=== PATIENT | female | born 1960 | race American Indian/Alaskan Native ===

== ENCOUNTER 2021-12-08 14:48 | Inpatient (IN) | payer MEDICAID ==
--- NOTE | 2021-12-09 08:43 | History and Physical Report ---
GP History & Physical - History of Present Illness Date of admission: 12/08/21 Date of Examination: 12/09/21 Reason for Admission: Danger to self, Danger to others Chief Complaint: suicidal ideation/hallucinations History of Present Illness: The patient is a 61 year old female with schizophrenia and depression who is admitted from [facility] for continued stabilization. The patient presented to the ED with suicidal ideation and auditory hallucinations; per note, the patient states that she was playing [place] [employer] with a cable suzanne and she lost and now she is having suicidal thoughts, and also states she is on TikTok with the the Cable suzanne. Notes states that the patient was seeing insects and snakes. The patient was seen today. She is calm, pleasant but hyperverbal. The patient is alert and oriented x4. She states that she went to the police department and was transported to [facility]. She states she is followed by a psychiatrist and was placed on Zyprexa 5mg po QHS however, she states she does not take her meds as prescribed. The patient reports alcohol use " drinks beer every morning," last used 3 days ago. She endorses depression, rates as 6/10. The patient denies any current suicidal/homicidal ideation and denies hallucinations. 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 Employment Status: Unemployed Access to guns/weapons: Denies Education: 11th grade History of Abuse: Denies Legal History: Denies REVIEW OF SYSTEMS Constitutional: Negative for weight loss ENT: Negative for stridor Respiratory: Negative for cough or hemoptysis All other systems reviewed and are negative MENTAL STATUS General Appearance and Behavior: age appropriate, good eye contact, cooperative, calm, pleasant Cooperation: Cooperative Psychomotor Behavior: within normal limits Mood: calm Affect and affective range: Congruent with stated mood Thought Process: Circumstantial/flight of ideas Thought Content: reality oriented Speech: Hyperverbal Suicidal Ideation: Denies Homicidal Ideation: Denies HI Hallucinations:Denies Delusions: None elicited Impulse Control: Fair Insight and Judgment: Good Memory: Good Attention: Attentive Orientation: alert and oriented Diagnosis: Schizophrenia Treatment Plan Patient will be admitted for inpatient psychiatric evaluation, medication adjustment and close monitoring The patient's behavior, mood, sleep and appetite will be closely monitored. Patient will be enrolled in individual and group therapeutic sessions and encouraged to attend. Patient will be provided with a safe and structured environment. Patient's physical health needs will be addressed by the Hospitalist. Hospitalist Consulted Labs including CBC, CMP, Lipid profile and Hemoglobin A1C ordered Social Assessment will be completed and the Waistline [employer] will work with patient and family to ensure a suitable and safe disposition Medication adjustment will be made as clinically indicated Usual Wellness Hoahaoism/Preservation: -Continue home meds Start Zyprexa 5mg po BID Start Depakote 125mg po BID The patient agreed on the treatment plan, understood the risk, benefit, alternative treatment, potential consequence of no treatment, and gave informed consent. Legal Status: voluntary Reaction to Hospitalization: Accepting Medications and Allergies Medications and Allergies Allergies Allergy/AdvReac Type Severity Reaction Status Date / Time No Known Allergies Allergy Unverified 12/08/21 18:22 Home Medications Medication Instructions Recorded Confirmed Last Taken Type Albuterol Mdi (or & Nicu Only) 1 puff IH Q4HR PRN 12/09/21 12/09/21 Unknown History [ProAir HFA Inhaler] AtorvaSTATin [Lipitor] 20 mg PO HS 12/09/21 12/09/21 Unknown History Levothyroxine Sodium 137 mcg PO QAM 12/09/21 12/09/21 Unknown History OLANZapine [Olanzapine] 5 mg PO HS 12/09/21 12/09/21 Unknown History Tiotropium [place] [Spiriva] 18 mcg INHALATION DAILY 12/09/21 12/09/21 Unknown History Tizanidine HCl 4 mg PO Q8HR PRN 12/09/21 12/09/21 Unknown History amLODIPine 10 mg PO DAILY 12/09/21 12/09/21 Unknown History lisinopriL [Lisinopril] 10 mg PO DAILY 12/09/21 12/09/21 Unknown History Active Meds: Active Medications Albuterol (Albuterol 8.5 Gm Mdi Inhalation) 1 puff IH Q4HR PRN PRN Reason: Dyspnea Amlodipine Besylate (Amlodipine 10 Mg Tab) 10 mg PO DAILY [facility] Atorvastatin Calcium (Atorvastatin 20 Mg Tab) 20 mg PO HS [facility] Lisinopril (Lisinopril 10 Mg Tab) 10 mg PO DAILY [facility] Miscellaneous Medication (Levothyroxine Sodium [Levothyroxine Sodium]) 137 mcg PO QAM [facility] Olanzapine (Olanzapine 5 Mg Tab) 5 mg PO BID [facility] Tiotropium [place] (Tiotropium 18 Mcg Cap Inhalation) puff IH DAILY [facility] Tizanidine HCl (Tizanidine Tab 4 Mg Tab) 4 mg PO Q8HR PRN PRN Reason: Muscle Spasm Results - Results Labs/Vitals: Last Vital Signs Temp 97.2 F L 12/09/21 07:17 Pulse 61 12/09/21 07:17 Resp 17 12/09/21 07:17 BP 96/61 12/09/21 07:17 Pulse Ox 93 12/09/21 07:17 Physical Examination - Constitutional Vitals: Vital Signs Temp Pulse Resp BP Pulse Ox 97.2 F L 61 17 96/61 93 12/09/21 07:17 12/09/21 07:17 12/09/21 07:17 12/09/21 07:17 12/09/21 07:17 Temperature -Last 24 Hours Temperature 97.2 F Temperature 98.2 F Mental Status Exam - Vital signs Last Vital Signs Temp 97.2 F L 12/09/21 07:17 Pulse 61 12/09/21 07:17 Resp 12/09/21 07:17 BP 96/61 12/09/21 07:17 Pulse Ox 93 12/09/21 07:17 Physician Certification - Certification Statement Physician Certification Statement: This is an acknowledgement statement that FERNANDO CHANEL is a 61 year old F who requires inpatient psychiatric admission for treatment which could reasonably be expected to improve the patient's condition for Estimated period of time patient will need to remain in the hospital: [ ] Plan for post-hospital care: [ ]
--- NOTE | 2021-12-09 09:24 | Consultation ---
History of Present Illness - History of Present Illness 61-year-old female with past medical history of hyperlipidemia, hypertension, asthma, hypothyroidism presenting to our facility for suicidal ideation and auditory hallucinations. Internal medicine service consulted for medical management. On my encounter the patient did appear to have strange disorganized thought process. She did not complain of any acute symptoms of headache, nausea, vomiting, chest pain, shortness of breath, abdominal pain. She denied any changes in her bowel habits her her appetite. Remainder of ROS negative except for stated above PMHx: Hyperlipidemia, hypothyroidism, hypertension, asthma, polysubstance abuse PSHx: Denies FHx: Reviewed noncontributory SHx: Tobacco use-denies ETOH Use-admits Recreational Drug Use-admits, THC, cocaine Medications and Allergies Allergies Allergy/AdvReac Type Severity Reaction Status Date / Time No Known Allergies Allergy Unverified 12/08/21 18:22 Home Medications Medication Instructions Recorded Confirmed Last Taken Type Albuterol Mdi (or & Nicu Only) 1 puff IH Q4HR PRN 12/09/21 12/09/21 Unknown History [ProAir HFA Inhaler] AtorvaSTATin [Lipitor] 20 mg PO HS 12/09/21 12/09/21 Unknown History Levothyroxine Sodium 137 mcg PO QAM 12/09/21 12/09/21 Unknown History OLANZapine [Olanzapine] 5 mg PO HS 12/09/21 12/09/21 Unknown History Tiotropium [place] [Spiriva] 18 mcg INHALATION DAILY 12/09/21 12/09/21 Unknown History Tizanidine HCl 4 mg PO Q8HR PRN 12/09/21 12/09/21 Unknown History amLODIPine 10 mg PO DAILY 12/09/21 12/09/21 Unknown History lisinopriL [Lisinopril] 10 mg PO DAILY 12/09/21 12/09/21 Unknown History Active Meds: Active Medications Albuterol (Albuterol 8.5 Gm Mdi Inhalation) 1 puff IH Q4HR PRN PRN Reason: Dyspnea Amlodipine Besylate (Amlodipine 10 Mg Tab) 10 mg PO DAILY [facility] Atorvastatin Calcium (Atorvastatin 20 Mg Tab) 20 mg PO HS [facility] Divalproex Sodium (Divalproex Dr 125 Mg Tab) 125 mg PO BID [facility] Levothyroxine Sodium (Levothyroxine 112 Mcg Tab) 112 mcg PO DAILY@0600 [facility] Levothyroxine Sodium (Levothyroxine 25 Mcg Tab) 25 mcg PO DAILY@0600 [facility] Lisinopril (Lisinopril 10 Mg Tab) 10 mg PO DAILY [facility] Olanzapine (Olanzapine 5 Mg Tab) 5 mg PO BID [facility] Tiotropium [place] (Tiotropium 18 Mcg Cap Inhalation) 1 puff IH DAILY [facility] Tizanidine HCl (Tizanidine Tab 4 Mg Tab) 4 mg PO Q8HR PRN PRN Reason: Muscle Spasm Trazodone HCl (Trazodone 50 Mg Tab) 50 mg PO QHS PRN PRN Reason: Insomnia Review of Systems All systems: negative (For stated in HPI) Exam - Physical Exam Narrative exam: Physical Exam: VITAL SIGNS: Reviewed. GENERAL: The patient appears normally developed, Vital signs as documented. Appears older than reported age HEAD: No signs of head trauma. EYES: Pupils are equal. Extraocular motions intact. EARS: Hearing grossly intact. MOUTH: Oropharynx is normal. NECK: No adenopathy, no JVD. CHEST: Chest with clear breath sounds bilaterally. No wheezes, rales, or rhonchi. CARDIAC: Regular rate and rhythm. S1 and S2, without murmurs, gallops, or rubs. VASCULAR: No Edema. Peripheral pulses normal and equal in all extremities. ABDOMEN: Soft, non tender and non distended. No rebound or guarding, and no masses palpated. Bowel Sounds normal. MUSCULOSKELETAL: Good range of motion of all major joints. Extremities without clubbing, cyanosis or edema. NEUROLOGIC EXAM: Alert and oriented x 4. no focal sensory or strength deficits. PSYCHIATRIC: Disorganized thought process. Tangential thoughts. SKIN: detail exam as documented in skin assessment - Constitutional Vitals: Temp Pulse Resp BP Pulse Ox 97.2 F L 61 17 96/61 93 12/09/21 07:17 12/09/21 07:17 12/09/21 07:17 12/09/21 07:17 12/09/21 07:17 Results - Labs CBC & Chem 7: 12/08/21 12:39 12/08/21 12:39 Assessment and Plan Assessment #Delusional disorder #Depression #Schizophrenia #Hypertension #Asthma #Hypothyroidism #Hyperlipidemia #Preventative health care - preventative health counseling regarding management of life stressors, medication compliance and overall effect of chronic medical conditions on overall health. Encourage patient to follow up closely with with OP providers +30 minutes. #Alcohol abuse #THC use #Cocaine use #Advance care planning Disease education conducted, care plan discussed, diagnoses discussed, prognosis discussed, patient is full code, patient acknowledges understanding and agree with care plan, +30 minutes. Plan -Psychiatric medication management per inpatient psych service -Monitor blood pressure daily, hypotensive on last BP read, hold lisinopril and amlodipine -Follow up labs ordered. -Resume home medications: Atorvastatin, Synthroid Patient currently on room air, agree with inhaler therapy with Spiriva and albuterol IM service will continue to follow while patient remains hospitalized
[2021-12-09] MEDS: DIVALPROEX DR 125 MG TAB PO SCH ×2 (09:46→21:11)
[2021-12-09] MEDS ORDERED: LEVOTHYROXINE SODIUM 137 MCG PO SCH (10:00)
[2021-12-09] MEDS ORDERED: amLODIPine 10 MG TAB PO SCH (10:00)
[2021-12-09] MEDS ORDERED: ALBUTEROL 8.5 GM MDI INHALATION IH PRN (10:00)
[2021-12-09] MEDS ORDERED: LISINOPRIL 10 MG TAB PO SCH (10:00)
[2021-12-09] MEDS ORDERED: tiZANidine TAB 4 MG TAB PO PRN (10:00)
[2021-12-09 12:48] LABS: Hematocrit 46.9 % (30.3-42.9); Hemoglobin 14.9 gm/dl (10.1-14.3); Mean Corpuscular HGB Conc 32 % (30-34); Mean Corpuscular Volume 91 fl (79-97); Platelet Count 211 K/mm3 (140-440); Red Blood Count 5.15 M/mm3 (3.65-5.03)
[2021-12-09 12:50] LABS: Red Cell Distribution Width 20.8 % (13.2-15.2)
[2021-12-09 13:08] LABS: Alanine Aminotransferase 14 units/L (7-56); Albumin 4.4 g/dL (3.9-5); BUN/Creatinine Ratio 18; Blood Urea Nitrogen 16 mg/dL (7-17); Calcium 10.9 mg/dL (8.4-10.2); Chol/HDL Ratio 1.85 %; HDL Cholesterol 98 mg/dL (40-59); Hemolysis Index 1; LDL Cholesterol,Direct 63 mg/dL (50-130)
[2021-12-09 13:33] LABS: Anisocytosis 1+; Eosinophils % (Manual) 0 % (0.0-4.3); Platelet Estimate Consistent w Auto; Total Cells Counted 100
[2021-12-09 13:56] LABS: Hepatitis B Surface Antigen Non-Reactive (Negative); Hepatitis C Virus Antibody Non-Reactive (NonReactive)
[2021-12-09] MEDS: ACETAMINOPHEN 325 MG TAB PO PRN (15:21)
[2021-12-09] MEDS: TIOTROPIUM 18 MCG CAP INHALATION IH SCH (16:30)
[2021-12-09] MEDS ORDERED: traZODone 50 MG TAB PO PRN (22:00)
[2021-12-10] MEDS: LEVOTHYROXINE 25 MCG TAB PO SCH (05:49)
[2021-12-10] MEDS: LEVOTHYROXINE 112 MCG TAB PO SCH (05:49)
--- NOTE | 2021-12-10 09:43 | Progress Note ---
Subjective Date of service: 12/10/21 Subjective Comment: 12/10:Seen pt today. Pt continues to complain about low sodium diet. The patient has a cardiac history that prevents her from having a regular diet, the pt has been educated of this. She reports "I'm doing good". Sleep is good. The pt denies any current cravings of crack and alcohol. She denies SI, HI, AVH. REVIEW OF SYSTEMS Constitutional: Negative for weight loss ENT: Negative for stridor Respiratory: Negative for cough or hemoptysis All other systems reviewed and are negative MENTAL STATUS General Appearance and Behavior: age appropriate, good eye contact, cooperative, calm, pleasant Cooperation: Cooperative Psychomotor Behavior: within normal limits Mood: good Affect and affective range: Congruent with stated mood Thought Process: goal directed Thought Content: reality oriented Speech: Normal Suicidal Ideation: Denies Homicidal Ideation: Denies HI Hallucinations:Denies Delusions: None elicited Impulse Control: Fair Insight and Judgment: Good Memory: Good Attention: Attentive Orientation: alert and oriented x4 Diagnosis: Schizophrenia Treatment Plan Patient will be admitted for inpatient psychiatric evaluation, medication adjustment and close monitoring The patient's behavior, mood, sleep and appetite will be closely monitored. Patient will be enrolled in individual and group therapeutic sessions and encouraged to attend. Patient will be provided with a safe and structured environment. Patient's physical health needs will be addressed by the Hospitalist. Hospitalist Consulted Labs including CBC, CMP, Lipid profile and Hemoglobin A1C ordered Social Assessment will be completed and the [employer] will work with patient and family to ensure a suitable and safe disposition Medication adjustment will be made as clinically indicated Usual Wellness Yazdanism/Preservation: -Continue home meds Start Zyprexa 5mg po BID Start Depakote 125mg po BID The patient agreed on the treatment plan, understood the risk, benefit, alternative treatment, potential consequence of no treatment, and gave informed consent. Legal Status: voluntary Reaction to Hospitalization: Accepting Medications and Allergies Medications and Allergies Allergies Allergy/AdvReac Type Severity Reaction Status Date / Time No Known Allergies Allergy Unverified 12/08/21 18:22 Home Medications Medication Instructions Recorded Confirmed Last Taken Type Albuterol Mdi (or & Nicu Only) 1 puff IH Q4HR PRN 12/09/21 12/09/21 Unknown History [ProAir HFA Inhaler] AtorvaSTATin [Lipitor] 20 mg PO HS 12/09/21 12/09/21 Unknown History Levothyroxine Sodium 137 mcg PO QAM 12/09/21 12/09/21 Unknown History OLANZapine [Olanzapine] 5 mg PO HS 12/09/21 12/09/21 Unknown History Tiotropium [place] [Spiriva] 18 mcg INHALATION DAILY 12/09/21 12/09/21 Unknown History Tizanidine HCl 4 mg PO Q8HR PRN 12/09/21 12/09/21 Unknown History amLODIPine 10 mg PO DAILY 12/09/21 12/09/21 Unknown History lisinopriL [Lisinopril] 10 mg PO DAILY 12/09/21 12/09/21 Unknown History Active Meds: Active Medications Acetaminophen (Acetaminophen 325 Mg Tab) 650 mg PO Q6HR PRN PRN Reason: Pain, Mild (1-3) Last Admin: 12/09/21 15:21 Dose: 650 mg Albuterol (Albuterol 8.5 Gm Mdi Inhalation) 1 puff IH Q4HR PRN PRN Reason: Dyspnea Atorvastatin Calcium (Atorvastatin 20 Mg Tab) 20 mg PO [facility] Last Admin: 12/09/21 21:12 Dose: 20 mg Divalproex Sodium (Divalproex Dr 125 Mg Tab) [address] [facility] Last Admin: 12/09/21 21:11 Dose: 125 mg Levothyroxine Sodium (Levothyroxine 112 Mcg Tab) 112 mcg PO DAILY@0600 [facility] Last Admin: 12/10/21 05:49 Dose: 112 mcg Levothyroxine Sodium (Levothyroxine 25 Mcg Tab) 25 mcg PO DAILY@0600 [facility] Last Admin: 12/10/21 05:49 Dose: 25 mcg Olanzapine (Olanzapine 5 Mg Tab) [address] [facility] Last Admin: 12/09/21 21:11 Dose: 5 mg Tiotropium [place] (Tiotropium 18 Mcg Cap Inhalation) [address] [facility] Last Admin: 12/09/21 16:30 Dose: 1 puff Tizanidine HCl (Tizanidine Tab 4 Mg Tab) 4 mg PO Q8HR PRN PRN Reason: Muscle Spasm Trazodone HCl (Trazodone 50 Mg Tab) 50 mg PO QHS PRN PRN Reason: Insomnia Results - Results Labs/Vitals: Laboratory Last Values WBC 5.1 K/mm3 (4.5-11.0) 12/08/21 12:39 RBC 5.15 M/mm3 (3.65-5.03) H 12/08/21 12:39 Hgb 14.9 gm/dl (10.1-14.3) H 12/08/21 12:39 Hct 46.9 % (30.3-42.9) H 12/08/21 12:39 MCV 91 fl (79-97) 12/08/21 12:39 MCH 29 pg (28-32) 12/08/21 12:39 MCHC 32 % (30-34) 12/08/21 12:39 RDW 20.8 % (13.2-15.2) H 12/08/21 12:39 Plt Count 211 K/mm3 (140-440) 12/08/21 12:39 Add Manual Diff Complete 12/08/21 12:39 Total Counted 100 12/08/21 12:39 Seg Neuts % (Manual) 70.0 % (40.0-70.0) 12/08/21 12:39 Band Neutrophils % 0 % 12/08/21 12:39 Lymphocytes % (Manual) 24.0 % (13.4-35.0) 12/08/21 12:39 Reactive Lymphs % (Man) 0 % 12/08/21 12:39 Monocytes % (Manual) 5.0 % (0.0-7.3) 12/08/21 12:39 Eosinophils % (Manual) 0 % (0.0-4.3) 12/08/21 12:39 Basophils % (Manual) 1.0 % (0.0-1.8) 12/08/21 12:39 Metamyelocytes % 0 % 12/08/21 12:39 Myelocytes % 0 % 12/08/21 12:39 Promyelocytes % 0 % 12/08/21 12:39 Blast Cells % 0 % 12/08/21 12:39 Nucleated RBC % Not Reportable 12/08/21 12:39 Seg Neutrophils # Man 3.6 K/mm3 (1.8-7.7) 12/08/21 12:39 Band Neutrophils # 0.0 K/mm3 12/08/21 12:39 Lymphocytes # (Manual) 1.2 K/mm3 (1.2-5.4) 12/08/21 12:39 Abs React Lymphs (Man) 0.0 K/mm3 12/08/21 12:39 Monocytes # (Manual) 0.3 K/mm3 (0.0-0.8) 12/08/21 12:39 Eosinophils # (Manual) 0.0 K/mm3 (0.0-0.4) 12/08/21 12:39 Basophils # (Manual) 0.1 K/mm3 (0.0-0.1) 12/08/21 12:39 Metamyelocytes # 0.0 K/mm3 12/08/21 12:39 Myelocytes # 0.0 K/mm3 12/08/21 12:39 Promyelocytes # 0.0 K/mm3 12/08/21 12:39 Blast Cells # 0.0 K/mm3 12/08/21 12:39 WBC Morphology Not Reportable 12/08/21 12:39 Hypersegmented Neuts Not Reportable 12/08/21 12:39 Hyposegmented Neuts Not Reportable 12/08/21 12:39 Hypogranular Neuts Not Reportable 12/08/21 12:39 Smudge Cells Not Reportable 12/08/21 12:39 Toxic Granulation Not Reportable 12/08/21 12:39 Toxic Vacuolation Not Reportable 12/08/21 12:39 Dohle Bodies Not Reportable 12/08/21 12:39 Pelger-Huet Anomaly Not Reportable 12/08/21 12:39 Maeve Rods Not Reportable 12/08/21 12:39 Platelet Estimate Consistent w auto 12/08/21 12:39 Clumped Platelets Not Reportable 12/08/21 12:39 Plt Clumps, EDTA Not Reportable 12/08/21 12:39 Large Platelets Not Reportable 12/08/21 12:39 Giant Platelets Not Reportable 12/08/21 12:39 Platelet Satelliting Not Reportable 12/08/21 12:39 Plt Morphology Comment Not Reportable 12/08/21 12:39 RBC Morphology Not Reportable 12/08/21 12:39 Dimorphic RBCs Not Reportable 12/08/21 12:39 Polychromasia Not Reportable 12/08/21 12:39 Hypochromasia Not Reportable 12/08/21 12:39 Poikilocytosis Not Reportable 12/08/21 12:39 Anisocytosis 1+ 12/08/21 12:39 Microcytosis Not Reportable 12/08/21 12:39 Macrocytosis Not Reportable 12/08/21 12:39 Spherocytes Not Reportable 12/08/21 12:39 Pappenheimer Bodies Not Reportable 12/08/21 12:39 Sickle Cells Not Reportable 12/08/21 12:39 Target Cells Not Reportable 12/08/21 12:39 Tear Drop Cells Not Reportable 12/08/21 12:39 Ovalocytes Not Reportable 12/08/21 12:39 Helmet Cells Not Reportable 12/08/21 12:39 [place] Bodies Not Reportable 12/08/21 12:39 [place] Rings Not Reportable 12/08/21 12:39 Yulia Cells Not Reportable 12/08/21 12:39 Bite Cells Not Reportable 12/08/21 12:39 Crenated Cell Not Reportable 12/08/21 12:39 Elliptocytes Not Reportable 12/08/21 12:39 Acanthocytes (Spur) Not Reportable 12/08/21 12:39 Rouleaux Not Reportable 12/08/21 12:39 Hemoglobin C Crystals Not Reportable 12/08/21 12:39 Schistocytes Not Reportable 12/08/21 12:39 Malaria parasites Not Reportable 12/08/21 12:39 Reinaldo Bodies Not Reportable 12/08/21 12:39 Hem Pathologist Commnt No 12/08/21 12:39 Sodium 135 mmol/L (137-145) L 12/08/21 12:39 Potassium 3.7 mmol/L (3.6-5.0) 12/08/21 12:39 Chloride 98.2 mmol/L (98-107) 12/08/21 12:39 Carbon Dioxide 27 mmol/L (22-30) 12/08/21 12:39 Anion Gap 14 mmol/L 12/08/21 12:39 BUN 16 mg/dL (7-17) 12/08/21 12:39 Creatinine 0.9 mg/dL (0.6-1.2) 12/08/21 12:39 Estimated GFR > 60 ml/min 12/08/21 12:39 BUN/Creatinine Ratio 18 % 12/08/21 12:39 Glucose 148 mg/dL (65-100) H 12/08/21 12:39 Hemoglobin A1c 6.0 % (4-6) 12/08/21 12:39 Calcium 10.9 mg/dL (8.4-10.2) H 12/08/21 12:39 Total Bilirubin 0.60 mg/dL (0.1-1.2) 12/08/21 12:39 AST 18 units/L (5-40) 12/08/21 12:39 ALT 14 units/L (7-56) 12/08/21 12:39 Alkaline Phosphatase 97 units/L (35-129) 12/08/21 12:39 Total Protein 7.4 g/dL (6.3-8.2) 12/08/21 12:39 Albumin 4.4 g/dL (3.9-5) 12/08/21 12:39 Albumin/Globulin Ratio 1.5 % 12/08/21 12:39 Triglycerides 184 mg/dL (2-149) H 12/08/21 12:39 Cholesterol 182 mg/dL (50-199) 12/08/21 12:39 LDL Cholesterol Direct 63 mg/dL (50-130) 12/08/21 12:39 HDL Cholesterol 98 mg/dL (40-59) H 12/08/21 12:39 Cholesterol/HDL Ratio 1.85 % 12/08/21 12:39 TSH 59.450 mlU/mL (0.270-4.200) H 12/08/21 12:39 Hepatitis A IgM Ab Non-reactive (NonReactive) 12/08/21 12:39 Hep Bs Antigen Non-reactive (Negative) 12/08/21 12:39 Hep B Core IgM Ab Non-reactive (NonReactive) 12/08/21 12:39 Hepatitis C Antibody Non-reactive (NonReactive) 12/08/21 12:39 Last Vital Signs Temp 98.3 F 12/09/21 18:52 Pulse 61 12/10/21 08:01 Resp 18 12/10/21 08:01 BP 106/61 12/10/21 08:01 Pulse Ox 94 12/10/21 08:01
[2021-12-10] MEDS ORDERED: hydrOXYzine PAMOATE 25 MG CAP PO PRN (10:00)
[2021-12-10] MEDS ORDERED: LEVOTHYROXINE 25 MCG TAB PO SCH (10:00)
[2021-12-10] MEDS ORDERED: LEVOTHYROXINE 112 MCG TAB PO SCH (10:00)
[2021-12-10] MEDS: DIVALPROEX DR 125 MG TAB PO SCH ×2 (10:55→21:14)
[2021-12-10] MEDS: ACETAMINOPHEN 325 MG TAB PO PRN (11:19)
--- NOTE | 2021-12-10 14:23 | Progress Note ---
Assessment and Plan Assessment and plan: Assessment #Delusional disorder #Depression #Schizophrenia #Hypertension #Asthma #Hypothyroidism #Hyperlipidemia #Preventative health care - preventative health counseling regarding management of life stressors, medication compliance and overall effect of chronic medical conditions on overall health. Encourage patient to follow up closely with with OP providers +30 minutes. #Alcohol abuse #THC use #Cocaine use #Advance care planning Disease education conducted, care plan discussed, diagnoses discussed, prognosis discussed, patient is full code, patient acknowledges understanding and agree with care plan, +30 minutes. Plan -Psychiatric medication management per inpatient psych service -Monitor blood pressure daily, hypotensive on BP read yesterday, continue to hold lisinopril and amlodipine -Lab work reviewed. TSH significantly elevated c/w non compliance with synthr oid. -Resume home medications: Atorvastatin, Synthroid Patient currently on room air, agree with inhaler therapy with Spiriva and albuterol IM service will continue to follow while patient remains hospitalized History Interval history: NO acute complaints. Hospitalist Physical - Physical exam Narrative exam: Physical Exam: VITAL SIGNS: Reviewed. GENERAL: The patient appears normally developed, Vital signs as documented. Appears older than reported age HEAD: No signs of head trauma. EYES: Pupils are equal. Extraocular motions intact. EARS: Hearing grossly intact. MOUTH: Oropharynx is normal. NECK: No adenopathy, no JVD. CHEST: Chest with clear breath sounds bilaterally. No wheezes, rales, or rhonchi. CARDIAC: Regular rate and rhythm. S1 and S2, without murmurs, gallops, or rubs. VASCULAR: No Edema. Peripheral pulses normal and equal in all extremities. ABDOMEN: Soft, non tender and non distended. No rebound or guarding, and no masses palpated. Bowel Sounds normal. MUSCULOSKELETAL: Good range of motion of all major joints. Extremities without clubbing, cyanosis or edema. NEUROLOGIC EXAM: Alert and oriented x 4. no focal sensory or strength deficits. PSYCHIATRIC: Disorganized thought process. Tangential thoughts. SKIN: detail exam as documented in skin assessment - Constitutional Vitals: Temp Pulse Resp BP Pulse Ox 98.3 F 61 18 106/61 94 12/09/21 18:52 12/10/21 08:01 12/10/21 08:01 12/10/21 08:01 12/10/21 08:01 Results - Labs CBC & Chem 7: 12/08/21 12:39 12/08/21 12:39 Labs: Laboratory Last Values WBC 5.1 K/mm3 (4.5-11.0) 12/08/21 12:39 RBC 5.15 M/mm3 (3.65-5.03) H 12/08/21 12:39 Hgb 14.9 gm/dl (10.1-14.3) H 12/08/21 12:39 Hct 46.9 % (30.3-42.9) H 12/08/21 12:39 MCV 91 fl (79-97) 12/08/21 12:39 MCH 29 pg (28-32) 12/08/21 12:39 MCHC 32 % (30-34) 12/08/21 12:39 RDW 20.8 % (13.2-15.2) H 12/08/21 12:39 Plt Count 211 K/mm3 (140-440) 12/08/21 12:39 Add Manual Diff Complete 12/08/21 12:39 Total Counted 100 12/08/21 12:39 Seg Neuts % (Manual) 70.0 % (40.0-70.0) 12/08/21 12:39 Band Neutrophils % 0 % 12/08/21 12:39 Lymphocytes % (Manual) 24.0 % (13.4-35.0) 12/08/21 12:39 Reactive Lymphs % (Man) 0 % 12/08/21 12:39 Monocytes % (Manual) 5.0 % (0.0-7.3) 12/08/21 12:39 Eosinophils % (Manual) 0 % (0.0-4.3) 12/08/21 12:39 Basophils % (Manual) 1.0 % (0.0-1.8) 12/08/21 12:39 Metamyelocytes % 0 % 12/08/21 12:39 Myelocytes % 0 % 12/08/21 12:39 Promyelocytes % 0 % 12/08/21 12:39 Blast Cells % 0 % 12/08/21 12:39 Nucleated RBC % Not Reportable 12/08/21 12:39 Seg Neutrophils # Man 3.6 K/mm3 (1.8-7.7) 12/08/21 12:39 Band Neutrophils # 0.0 K/mm3 12/08/21 12:39 Lymphocytes # (Manual) 1.2 K/mm3 (1.2-5.4) 12/08/21 12:39 Abs React Lymphs (Man) 0.0 K/mm3 12/08/21 12:39 Monocytes # (Manual) 0.3 K/mm3 (0.0-0.8) 12/08/21 12:39 Eosinophils # (Manual) 0.0 K/mm3 (0.0-0.4) 12/08/21 12:39 Basophils # (Manual) 0.1 K/mm3 (0.0-0.1) 12/08/21 12:39 Metamyelocytes # 0.0 K/mm3 12/08/21 12:39 Myelocytes # 0.0 K/mm3 12/08/21 12:39 Promyelocytes # 0.0 K/mm3 12/08/21 12:39 Blast Cells # 0.0 K/mm3 12/08/21 12:39 WBC Morphology Not Reportable 12/08/21 12:39 Hypersegmented Neuts Not Reportable 12/08/21 12:39 Hyposegmented Neuts Not Reportable 12/08/21 12:39 Hypogranular Neuts Not Reportable 12/08/21 12:39 Smudge Cells Not Reportable 12/08/21 12:39 Toxic Granulation Not Reportable 12/08/21 12:39 Toxic Vacuolation Not Reportable 12/08/21 12:39 Dohle Bodies Not Reportable 12/08/21 12:39 Pelger-Huet Anomaly Not Reportable 12/08/21 12:39 Maeve Rods Not Reportable 12/08/21 12:39 Platelet Estimate Consistent w auto 12/08/21 12:39 Clumped Platelets Not Reportable 12/08/21 12:39 Plt Clumps, EDTA Not Reportable 12/08/21 12:39 Large Platelets Not Reportable 12/08/21 12:39 Giant Platelets Not Reportable 12/08/21 12:39 Platelet Satelliting Not Reportable 12/08/21 12:39 Plt Morphology Comment Not Reportable 12/08/21 12:39 RBC Morphology Not Reportable 12/08/21 12:39 Dimorphic RBCs Not Reportable 12/08/21 12:39 Polychromasia Not Reportable 12/08/21 12:39 Hypochromasia Not Reportable 12/08/21 12:39 Poikilocytosis Not Reportable 12/08/21 12:39 Anisocytosis 1+ 12/08/21 12:39 Microcytosis Not Reportable 12/08/21 12:39 Macrocytosis Not Reportable 12/08/21 12:39 Spherocytes Not Reportable 12/08/21 12:39 Pappenheimer Bodies Not Reportable 12/08/21 12:39 Sickle Cells Not Reportable 12/08/21 12:39 Target Cells Not Reportable 12/08/21 12:39 Tear Drop Cells Not Reportable 12/08/21 12:39 Ovalocytes Not Reportable 12/08/21 12:39 Helmet Cells Not Reportable 12/08/21 12:39 Veliz-[place] Bodies Not Reportable 12/08/21 12:39 [place] Rings Not Reportable 12/08/21 12:39 Yulia Cells Not Reportable 12/08/21 12:39 Bite Cells Not Reportable 12/08/21 12:39 Crenated Cell Not Reportable 12/08/21 12:39 Elliptocytes Not Reportable 12/08/21 12:39 Acanthocytes (Spur) Not Reportable 12/08/21 12:39 Rouleaux Not Reportable 12/08/21 12:39 Hemoglobin C Crystals Not Reportable 12/08/21 12:39 Schistocytes Not Reportable 12/08/21 12:39 Malaria parasites Not Reportable 12/08/21 12:39 Reinaldo Bodies Not Reportable 12/08/21 12:39 Hem Pathologist Commnt No 12/08/21 12:39 Sodium 135 mmol/L (137-145) L 12/08/21 12:39 Potassium 3.7 mmol/L (3.6-5.0) 12/08/21 12:39 Chloride 98.2 mmol/L (98-107) 12/08/21 12:39 Carbon Dioxide 27 mmol/L (22-30) 12/08/21 12:39 Anion Gap 14 mmol/L 12/08/21 12:39 BUN 16 mg/dL (7-17) 12/08/21 12:39 Creatinine 0.9 mg/dL (0.6-1.2) 12/08/21 12:39 Estimated GFR > 60 ml/min 12/08/21 12:39 BUN/Creatinine Ratio 18 % 08/22/22 12:39 Glucose 148 mg/dL (65-100) H 12/08/21 12:39 Hemoglobin A1c 6.0 % (4-6) 12/08/21 12:39 Calcium 10.9 mg/dL (8.4-10.2) H 12/08/21 12:39 Total Bilirubin 0.60 mg/dL (0.1-1.2) 12/08/21 12:39 AST 18 units/L (5-40) 12/08/21 12:39 ALT 14 units/L (7-56) 12/08/21 12:39 Alkaline Phosphatase 97 units/L (35-129) 12/08/21 12:39 Total Protein 7.4 g/dL (6.3-8.2) 12/08/21 12:39 Albumin 4.4 g/dL (3.9-5) 12/08/21 12:39 Albumin/Globulin Ratio 1.5 % 12/08/21 12:39 Triglycerides 184 mg/dL (2-149) H 12/08/21 12:39 Cholesterol 182 mg/dL (50-199) 12/08/21 12:39 LDL Cholesterol Direct 63 mg/dL (50-130) 12/08/21 12:39 HDL Cholesterol 98 mg/dL (40-59) H 12/08/21 12:39 Cholesterol/HDL Ratio 1.85 % 12/08/21 12:39 TSH 59.450 mlU/mL (0.270-4.200) H 12/08/21 12:39 Hepatitis A IgM Ab Non-reactive (NonReactive) 12/08/21 12:39 Hep Bs Antigen Non-reactive (Negative) 12/08/21 12:39 Hep B Core IgM Ab Non-reactive (NonReactive) 12/08/21 12:39 Hepatitis C Antibody Non-reactive (NonReactive) 12/08/21 12:39 Busch/IV: Voiding Method Toilet Active Medications - Current Medications Current Medications: Generic Name Dose Route Start Last Admin Trade Name Freq PRN Reason Stop Dose Admin Acetaminophen 650 mg 12/09/21 12:22 12/10/21 11:19 Acetaminophen 325 Mg Tab PO 650 mg Q6HR PRN Administration Pain, Mild (1-3) Albuterol 1 puff 12/09/21 10:00 Albuterol 8.5 Gm Mdi Inhalation IH Q4HR PRN Dyspnea Atorvastatin Calcium 20 mg 12/09/21 22:00 12/09/21 21:12 Atorvastatin 20 Mg Tab PO 20 mg HS OSBALDO Administration Divalproex Sodium 125 mg 12/09/21 10:00 12/10/21 10:[address] 125 Mg Tab PO 125 mg BID OSBALDO Administration Hydroxyzine Pamoate 25 mg 12/10/21 10:00 Hydroxyzine [place] 25 Mg Cap PO Q6H PRN Anxiety Levothyroxine Sodium 112 mcg 12/10/21 06:00 12/10/21 05:49 Levothyroxine 112 Mcg Tab PO 112 mcg DAILY@0600 OSBALDO Administration Levothyroxine Sodium 25 mcg 12/10/21 06:00 12/10/21 05:49 Levothyroxine 25 Mcg Tab PO 25 mcg DAILY@0600 OSBALDO Administration Olanzapine 5 mg 12/09/21 10:00 12/10/21 10:55 Olanzapine 5 Mg Tab PO 5 mg BID OSBALDO Administration Tiotropium [place] 1 puff 12/09/21 10:00 12/09/21 16:30 Tiotropium 18 Mcg Cap Inhalation IH 1 puff DAILY OSBALDO Administration Tizanidine HCl 4 mg 12/09/21 10:00 Tizanidine Tab 4 Mg Tab PO Q8HR PRN Muscle Spasm Trazodone HCl 50 mg 12/09/21 22:00 Trazodone 50 Mg Tab PO QHS PRN Insomnia
[2021-12-11] MEDS: LEVOTHYROXINE 112 MCG TAB PO SCH (06:08)
[2021-12-11] MEDS: LEVOTHYROXINE 25 MCG TAB PO SCH (06:08)
--- NOTE | 2021-12-11 08:48 | Progress Note ---
Assessment and Plan Assessment and plan: Assessment #Delusional disorder #Depression #Schizophrenia #Hypertension #Asthma #Hypothyroidism #Hyperlipidemia #Preventative health care - preventative health counseling regarding management of life stressors, medication compliance and overall effect of chronic medical conditions on overall health. Encourage patient to follow up closely with with OP providers +30 minutes. #Alcohol abuse #THC use #Cocaine use #Advance care planning Disease education conducted, care plan discussed, diagnoses discussed, prognosis discussed, patient is full code, patient acknowledges understanding and agree with care plan, +30 minutes. Plan -Psychiatric medication management per inpatient psych service -Monitor blood pressure daily, hypotensive on BP read yesterday, continue to hold lisinopril and amlodipine -Lab work reviewed. TSH significantly elevated c/w non compliance with synthr oid. -Resume home medications: Atorvastatin, Synthroid Patient currently on room air, agree with inhaler therapy with Spiriva and albuterol IM service will continue to follow while patient remains hospitalized History Interval history: No acute complaints reported on encounter. Hospitalist Physical - Physical exam Narrative exam: Physical Exam: VITAL SIGNS: Reviewed. GENERAL: The patient appears normally developed, Vital signs as documented. Appears older than reported age HEAD: No signs of head trauma. EYES: Pupils are equal. Extraocular motions intact. EARS: Hearing grossly intact. MOUTH: Oropharynx is normal. NECK: No adenopathy, no JVD. CHEST: Chest with clear breath sounds bilaterally. No wheezes, rales, or rhonchi. CARDIAC: Regular rate and rhythm. S1 and S2, without murmurs, gallops, or rubs. VASCULAR: No Edema. Peripheral pulses normal and equal in all extremities. ABDOMEN: Soft, non tender and non distended. No rebound or guarding, and no masses palpated. Bowel Sounds normal. MUSCULOSKELETAL: Good range of motion of all major joints. Extremities without clubbing, cyanosis or edema. NEUROLOGIC EXAM: Alert and oriented x 4. no focal sensory or strength deficits. PSYCHIATRIC: Disorganized thought process. Tangential thoughts. SKIN: detail exam as documented in skin assessment - Constitutional Vitals: Temp Pulse Resp BP Pulse Ox 98.0 F 72 18 134/77 93 12/10/21 19:21 12/10/21 19:21 12/10/21 19:21 12/10/21 19:21 12/10/21 19:21 Results - Labs CBC & Chem 7: 12/08/21 12:39 12/08/21 12:39 Labs: Laboratory Last Values WBC 5.1 K/mm3 (4.5-11.0) 12/08/21 12:39 RBC 5.15 M/mm3 (3.65-5.03) H 12/08/21 12:39 Hgb 14.9 gm/dl (10.1-14.3) H 12/08/21 12:39 Hct 46.9 % (30.3-42.9) H 12/08/21 12:39 MCV 91 fl (79-97) 12/08/21 12:39 MCH 29 pg (28-32) 12/08/21 12:39 MCHC 32 % (30-34) 12/08/21 12:39 RDW 20.8 % (13.2-15.2) H 12/08/21 12:39 Plt Count 211 K/mm3 (140-440) 12/08/21 12:39 Add Manual Diff Complete 12/08/21 12:39 Total Counted 100 12/08/21 12:39 Seg Neuts % (Manual) 70.0 % (40.0-70.0) 12/08/21 12:39 Band Neutrophils % 0 % 12/08/21 12:39 Lymphocytes % (Manual) 24.0 % (13.4-35.0) 12/08/21 12:39 Reactive Lymphs % (Man) 0 % 12/08/21 12:39 Monocytes % (Manual) 5.0 % (0.0-7.3) 12/08/21 12:39 Eosinophils % (Manual) 0 % (0.0-4.3) 12/08/21 12:39 Basophils % (Manual) 1.0 % (0.0-1.8) 12/08/21 12:39 Metamyelocytes % 0 % 12/08/21 12:39 Myelocytes % 0 % 12/08/21 12:39 Promyelocytes % 0 % 12/08/21 12:39 Blast Cells % 0 % 12/08/21 12:39 Nucleated RBC % Not Reportable 12/08/21 12:39 Seg Neutrophils # Man 3.6 K/mm3 (1.8-7.7) 12/08/21 12:39 Band Neutrophils # 0.0 K/mm3 12/08/21 12:39 Lymphocytes # (Manual) 1.2 K/mm3 (1.2-5.4) 12/08/21 12:39 Abs React Lymphs (Man) 0.0 K/mm3 12/08/21 12:39 Monocytes # (Manual) 0.3 K/mm3 (0.0-0.8) 12/08/21 12:39 Eosinophils # (Manual) 0.0 K/mm3 (0.0-0.4) 12/08/21 12:39 Basophils # (Manual) 0.1 K/mm3 (0.0-0.1) 12/08/21 12:39 Metamyelocytes # 0.0 K/mm3 12/08/21 12:39 Myelocytes # 0.0 K/mm3 12/08/21 12:39 Promyelocytes # 0.0 K/mm3 12/08/21 12:39 Blast Cells # 0.0 K/mm3 12/08/21 12:39 WBC Morphology Not Reportable 12/08/21 12:39 Hypersegmented Neuts Not Reportable 12/08/21 12:39 Hyposegmented Neuts Not Reportable 12/08/21 12:39 Hypogranular Neuts Not Reportable 12/08/21 12:39 Smudge Cells Not Reportable 12/08/21 12:39 Toxic Granulation Not Reportable 12/08/21 12:39 Toxic Vacuolation Not Reportable 12/08/21 12:39 Dohle Bodies Not Reportable 12/08/21 12:39 Pelger-Huet Anomaly Not Reportable 12/08/21 12:39 Maeve Rods Not Reportable 12/08/21 12:39 Platelet Estimate Consistent w auto 12/08/21 12:39 Clumped Platelets Not Reportable 12/08/21 12:39 Plt Clumps, EDTA Not Reportable 12/08/21 12:39 Large Platelets Not Reportable 12/08/21 12:39 Giant Platelets Not Reportable 12/08/21 12:39 Platelet Satelliting Not Reportable 12/08/21 12:39 Plt Morphology Comment Not Reportable 12/08/21 12:39 RBC Morphology Not Reportable 12/08/21 12:39 Dimorphic RBCs Not Reportable 12/08/21 12:39 Polychromasia Not Reportable 12/08/21 12:39 Hypochromasia Not Reportable 12/08/21 12:39 Poikilocytosis Not Reportable 12/08/21 12:39 Anisocytosis 1+ 12/08/21 12:39 Microcytosis Not Reportable 12/08/21 12:39 Macrocytosis Not Reportable 12/08/21 12:39 Spherocytes Not Reportable 12/08/21 12:39 Pappenheimer Bodies Not Reportable 12/08/21 12:39 Sickle Cells Not Reportable 12/08/21 12:39 Target Cells Not Reportable 12/08/21 12:39 Tear Drop Cells Not Reportable 12/08/21 12:39 Ovalocytes Not Reportable 12/08/21 12:39 Helmet Cells Not Reportable 12/08/21 12:39 Veliz-[place] Bodies Not Reportable 12/08/21 12:39 [place] Rings Not Reportable 12/08/21 12:39 Yulia Cells Not Reportable 12/08/21 12:39 Bite Cells Not Reportable 12/08/21 12:39 Crenated Cell Not Reportable 12/08/21 12:39 Elliptocytes Not Reportable 12/08/21 12:39 Acanthocytes (Spur) Not Reportable 12/08/21 12:39 Rouleaux Not Reportable 12/08/21 12:39 Hemoglobin C Crystals Not Reportable 12/08/21 12:39 Schistocytes Not Reportable 12/08/21 12:39 Malaria parasites Not Reportable 12/08/21 12:39 Reinaldo Bodies Not Reportable 12/08/21 12:39 Hem Pathologist Commnt No 12/08/21 12:39 Sodium 135 mmol/L (137-145) L 12/08/21 12:39 Potassium 3.7 mmol/L (3.6-5.0) 12/08/21 12:39 Chloride 98.2 mmol/L (98-107) 12/08/21 12:39 Carbon Dioxide 27 mmol/L (22-30) 12/08/21 12:39 Anion Gap 14 mmol/L 12/08/21 12:39 BUN 16 mg/dL (7-17) 12/08/21 12:39 Creatinine 0.9 mg/dL (0.6-1.2) 12/08/21 12:39 Estimated GFR > 60 ml/min 12/08/21 12:39 BUN/Creatinine Ratio 18 % 12/08/21 12:39 Glucose 148 mg/dL (65-100) H 12/08/21 12:39 Hemoglobin A1c 6.0 % (4-6) 12/08/21 12:39 Calcium 10.9 mg/dL (8.4-10.2) H 12/08/21 12:39 Total Bilirubin 0.60 mg/dL (0.1-1.2) 12/08/21 12:39 AST 18 units/L (5-40) 12/08/21 12:39 ALT 14 units/L (7-56) 12/08/21 12:39 Alkaline Phosphatase 97 units/L (35-129) 12/08/21 12:39 Total Protein 7.4 g/dL (6.3-8.2) 12/08/21 12:39 Albumin 4.4 g/dL (3.9-5) 12/08/21 12:39 Albumin/Globulin Ratio 1.5 % 12/08/21 12:39 Triglycerides 184 mg/dL (2-149) H 12/08/21 12:39 Cholesterol 182 mg/dL (50-199) 12/08/21 12:39 LDL Cholesterol Direct 63 mg/dL (50-130) 12/08/21 12:39 HDL Cholesterol 98 mg/dL (40-59) H 12/08/21 12:39 Cholesterol/HDL Ratio 1.85 % 12/08/21 12:39 TSH 59.450 mlU/mL (0.270-4.200) H 12/08/21 12:39 Hepatitis A IgM Ab Non-reactive (NonReactive) 12/08/21 12:39 Hep Bs Antigen Non-reactive (Negative) 12/08/21 12:39 Hep B Core IgM Ab Non-reactive (NonReactive) 12/08/21 12:39 Hepatitis C Antibody Non-reactive (NonReactive) 12/08/21 12:39 Busch/IV: Voiding Method Toilet Active Medications - Current Medications Current Medications: Generic Name Dose Route Start Last Admin Trade Name Freq PRN Reason Stop Dose Admin Acetaminophen 650 mg 12/09/21 12:22 12/10/21 11:19 Acetaminophen 325 Mg Tab PO 650 mg Q6HR PRN Administration Pain, Mild (1-3) Albuterol 1 puff 12/09/21 10:00 Albuterol 8.5 Gm Mdi Inhalation IH Q4HR PRN Dyspnea Atorvastatin Calcium 20 mg 12/09/21 22:00 12/10/21 21:14 Atorvastatin 20 Mg Tab PO 20 mg HS OSBALDO Administration Divalproex Sodium 125 mg 12/09/21 10:00 12/10/21 21:[address] 125 Mg Tab PO 125 mg BID OSBALDO Administration Hydroxyzine [place] 25 mg 12/10/21 10:00 Hydroxyzine [place] 25 Mg Cap PO Q6H PRN Anxiety Levothyroxine Sodium 112 mcg 12/10/21 06:00 12/11/21 06:08 Levothyroxine 112 Mcg Tab PO 112 mcg DAILY@0600 OSBALDO Administration Levothyroxine Sodium 25 mcg 12/10/21 06:00 12/11/21 06:08 Levothyroxine 25 Mcg Tab PO 25 mcg DAILY@0600 OSBALDO Administration Olanzapine 5 mg 12/09/21 10:00 12/10/21 21:14 Olanzapine 5 Mg Tab PO 5 mg BID OSBALDO Administration Tiotropium [place] 1 puff 12/09/21 10:00 12/09/21 16:30 Tiotropium 18 Mcg Cap Inhalation IH 1 puff DAILY OSBALDO Administration Tizanidine HCl 4 mg 12/09/21 10:00 Tizanidine Tab 4 Mg Tab PO Q8HR PRN Muscle Spasm Trazodone HCl 50 mg 12/09/21 22:00 Trazodone 50 Mg Tab PO QHS PRN Insomnia
[2021-12-11] MEDS: DIVALPROEX DR 125 MG TAB PO SCH ×2 (09:21→21:25)
--- NOTE | 2021-12-11 09:41 | Progress Note ---
Subjective Date of service: 12/11/21 Subjective Comment: 12/11: The patient was seen this morning. She states she is doing ok. She states sleep and appetite as god. The patient denies depression " family members can stress you." The pt denies any current cravings of crack and alcohol. She denie s SI, HI, AVH. 12/10:Seen pt today. Pt continues to complain about low sodium diet. The patient has a cardiac history that prevents her from having a regular diet, the pt has been educated of this. She reports "I'm doing good". Sleep is good. The pt denies any current cravings of crack and alcohol. She denies SI, HI, AVH. REVIEW OF SYSTEMS Constitutional: Negative for weight loss ENT: Negative for stridor Respiratory: Negative for cough or hemoptysis All other systems reviewed and are negative MENTAL STATUS General Appearance and Behavior: age appropriate, good eye contact, cooperative, calm, pleasant Cooperation: Cooperative Psychomotor Behavior: within normal limits Mood: good Affect and affective range: Congruent with stated mood Thought Process: goal directed Thought Content: reality oriented Speech: Normal Suicidal Ideation: Denies Homicidal Ideation: Denies HI Hallucinations:Denies Delusions: None elicited Impulse Control: Fair Insight and Judgment: Good Memory: Good Attention: Attentive Orientation: alert and oriented x4 Diagnosis: Schizophrenia Treatment Plan Patient will be admitted for inpatient psychiatric evaluation, medication adjustment and close monitoring The patient's behavior, mood, sleep and appetite will be closely monitored. Patient will be enrolled in individual and group therapeutic sessions and encouraged to attend. Patient will be provided with a safe and structured environment. Patient's physical health needs will be addressed by the Hospitalist. Hospitalist Consulted Labs including CBC, CMP, Lipid profile and Hemoglobin A1C ordered Social Assessment will be completed and the Acid Dipper will work with patient and family to ensure a suitable and safe disposition Medication adjustment will be made as clinically indicated Usual Wellness Jewish/Preservation: -Continue home meds Continue Zyprexa 5mg po BID Continue Depakote 125mg po BID The patient agreed on the treatment plan, understood the risk, benefit, alternative treatment, potential consequence of no treatment, and gave informed consent. Legal Status: voluntary Reaction to Hospitalization: Accepting Medications and Allergies Medications and Allergies Allergies Allergy/AdvReac Type Severity Reaction Status Date / Time No Known Allergies Allergy Unverified 12/08/21 18:22 Home Medications Medication Instructions Recorded Confirmed Last Taken Type Albuterol Mdi (or & Nicu Only) 1 puff IH Q4HR PRN 12/09/21 12/09/21 Unknown History [ProAir HFA Inhaler] AtorvaSTATin [Lipitor] 20 mg PO HS 12/09/21 12/09/21 Unknown History Levothyroxine Sodium 137 mcg PO QAM 12/09/21 12/09/21 Unknown History OLANZapine [Olanzapine] 5 mg PO HS 12/09/21 12/09/21 Unknown History Tiotropium [place] [Spiriva] 18 mcg INHALATION DAILY 12/09/21 12/09/21 Unknown History Tizanidine HCl 4 mg PO Q8HR PRN 12/09/21 12/09/21 Unknown History amLODIPine 10 mg PO DAILY 12/09/21 12/09/21 Unknown History lisinopriL [Lisinopril] 10 mg PO DAILY 12/09/21 12/09/21 Unknown History Active Meds: Active Medications Acetaminophen (Acetaminophen 325 Mg Tab) 650 mg PO Q6HR PRN PRN Reason: Pain, Mild (1-3) Last Admin: 12/10/21 11:19 Dose: 650 mg Albuterol (Albuterol 8.5 Gm Mdi Inhalation) 1 puff IH Q4HR PRN PRN Reason: Dyspnea Atorvastatin Calcium (Atorvastatin 20 Mg Tab) 20 mg PO [facility] Last Admin: 12/10/21 21:14 Dose: 20 mg Divalproex Sodium (Divalproex Dr 125 Mg Tab) 125 mg PO BID [facility] Last Admin: 12/11/21 09:21 Dose: 125 mg Hydroxyzine Pamoate (Hydroxyzine Pamoate 25 Mg Cap) 25 mg PO Q6H PRN PRN Reason: Anxiety Levothyroxine Sodium (Levothyroxine 112 Mcg Tab) 112 mcg PO DAILY@0600 [facility] Last Admin: 12/11/21 06:08 Dose: 112 mcg Levothyroxine Sodium (Levothyroxine 25 Mcg Tab) 25 mcg PO DAILY@0600 [facility] Last Admin: 12/11/21 06:08 Dose: 25 mcg Olanzapine (Olanzapine 5 Mg Tab) 5 mg PO BID [facility] Last Admin: 12/11/21 09:21 Dose: 5 mg Tiotropium [place] (Tiotropium 18 Mcg Cap Inhalation) 1 puff IH DAILY [facility] Last Admin: 12/09/21 16:30 Dose: 1 puff Tizanidine HCl (Tizanidine Tab 4 Mg Tab) 4 mg PO Q8HR PRN PRN Reason: Muscle Spasm Trazodone HCl (Trazodone 50 Mg Tab) 50 mg PO QHS PRN PRN Reason: Insomnia Results - Results Labs/Vitals: Laboratory Last Values WBC 5.1 K/mm3 (4.5-11.0) 12/08/21 12:39 RBC 5.15 M/mm3 (3.65-5.03) H 12/08/21 12:39 Hgb 14.9 gm/dl (10.1-14.3) H 12/08/21 12:39 Hct 46.9 % (30.3-42.9) H 12/08/21 12:39 MCV 91 fl (79-97) 12/08/21 12:39 MCH 29 pg (28-32) 12/08/21 12:39 MCHC 32 % (30-34) 12/08/21 12:39 RDW 20.8 % (13.2-15.2) H 12/08/21 12:39 Plt Count 211 K/mm3 (140-440) 12/08/21 12:39 Add Manual Diff Complete 12/08/21 12:39 Total Counted 100 12/08/21 12:39 Seg Neuts % (Manual) 70.0 % (40.0-70.0) 12/08/21 12:39 Band Neutrophils % 0 % 12/08/21 12:39 Lymphocytes % (Manual) 24.0 % (13.4-35.0) 12/08/21 12:39 Reactive Lymphs % (Man) 0 % 12/08/21 12:39 Monocytes % (Manual) 5.0 % (0.0-7.3) 12/08/21 12:39 Eosinophils % (Manual) 0 % (0.0-4.3) 12/08/21 12:39 Basophils % (Manual) 1.0 % (0.0-1.8) 12/08/21 12:39 Metamyelocytes % 0 % 12/08/21 12:39 Myelocytes % 0 % 12/08/21 12:39 Promyelocytes % 0 % 12/08/21 12:39 Blast Cells % 0 % 12/08/21 12:39 Nucleated RBC % Not Reportable 12/08/21 12:39 Seg Neutrophils # Man 3.6 K/mm3 (1.8-7.7) 12/08/21 12:39 Band Neutrophils # 0.0 K/mm3 12/08/21 12:39 Lymphocytes # (Manual) 1.2 K/mm3 (1.2-5.4) 12/08/21 12:39 Abs React Lymphs (Man) 0.0 K/mm3 12/08/21 12:39 Monocytes # (Manual) 0.3 K/mm3 (0.0-0.8) 12/08/21 12:39 Eosinophils # (Manual) 0.0 K/mm3 (0.0-0.4) 12/08/21 12:39 Basophils # (Manual) 0.1 K/mm3 (0.0-0.1) 12/08/21 12:39 Metamyelocytes # 0.0 K/mm3 12/08/21 12:39 Myelocytes # 0.0 K/mm3 12/08/21 12:39 Promyelocytes # 0.0 K/mm3 12/08/21 12:39 Blast Cells # 0.0 K/mm3 12/08/21 12:39 WBC Morphology Not Reportable 12/08/21 12:39 Hypersegmented Neuts Not Reportable 12/08/21 12:39 Hyposegmented Neuts Not Reportable 12/08/21 12:39 Hypogranular Neuts Not Reportable 12/08/21 12:39 Smudge Cells Not Reportable 12/08/21 12:39 Toxic Granulation Not Reportable 12/08/21 12:39 Toxic Vacuolation Not Reportable 12/08/21 12:39 Dohle Bodies Not Reportable 12/08/21 12:39 Pelger-Huet Anomaly Not Reportable 12/08/21 12:39 Maeve Rods Not Reportable 12/08/21 12:39 Platelet Estimate Consistent w auto 12/08/21 12:39 Clumped Platelets Not Reportable 12/08/21 12:39 Plt Clumps, EDTA Not Reportable 12/08/21 12:39 Large Platelets Not Reportable 12/08/21 12:39 Giant Platelets Not Reportable 12/08/21 12:39 Platelet Satelliting Not Reportable 12/08/21 12:39 Plt Morphology Comment Not Reportable 12/08/21 12:39 RBC Morphology Not Reportable 12/08/21 12:39 Dimorphic RBCs Not Reportable 12/08/21 12:39 Polychromasia Not Reportable 12/08/21 12:39 Hypochromasia Not Reportable 12/08/21 12:39 Poikilocytosis Not Reportable 12/08/21 12:39 Anisocytosis 1+ 12/08/21 12:39 Microcytosis Not Reportable 12/08/21 12:39 Macrocytosis Not Reportable 12/08/21 12:39 Spherocytes Not Reportable 12/08/21 12:39 Pappenheimer Bodies Not Reportable 12/08/21 12:39 Sickle Cells Not Reportable 12/08/21 12:39 Target Cells Not Reportable 12/08/21 12:39 Tear Drop Cells Not Reportable 12/08/21 12:39 Ovalocytes Not Reportable 12/08/21 12:39 Helmet Cells Not Reportable 12/08/21 12:39 Veliz-[place] Bodies Not Reportable 12/08/21 12:39 [place] Rings Not Reportable 12/08/21 12:39 Yulia Cells Not Reportable 12/08/21 12:39 Bite Cells Not Reportable 12/08/21 12:39 Crenated Cell Not Reportable 12/08/21 12:39 Elliptocytes Not Reportable 12/08/21 12:39 Acanthocytes (Spur) Not Reportable 12/08/21 12:39 Rouleaux Not Reportable 12/08/21 12:39 Hemoglobin C Crystals Not Reportable 12/08/21 12:39 Schistocytes Not Reportable 12/08/21 12:39 Malaria parasites Not Reportable 12/08/21 12:39 Reinaldo Bodies Not Reportable 12/08/21 12:39 Hem Pathologist Commnt No 12/08/21 12:39 Sodium 135 mmol/L (137-145) L 12/08/21 12:39 Potassium 3.7 mmol/L (3.6-5.0) 12/08/21 12:39 Chloride 98.2 mmol/L (98-107) 12/08/21 12:39 Carbon Dioxide 27 mmol/L (22-30) 12/08/21 12:39 Anion Gap 14 mmol/L 12/08/21 12:39 BUN 16 mg/dL (7-17) 12/08/21 12:39 Creatinine 0.9 mg/dL (0.6-1.2) 12/08/21 12:39 Estimated GFR > 60 ml/min 12/08/21 12:39 BUN/Creatinine Ratio 18 % 12/08/21 12:39 Glucose 148 mg/dL (65-100) H 12/08/21 12:39 Hemoglobin A1c 6.0 % (4-6) 12/08/21 12:39 Calcium 10.9 mg/dL (8.4-10.2) H 12/08/21 12:39 Total Bilirubin 0.60 mg/dL (0.1-1.2) 12/08/21 12:39 AST 18 units/L (5-40) 12/08/21 12:39 ALT 14 units/L (7-56) 12/08/21 12:39 Alkaline Phosphatase 97 units/L (35-129) 12/08/21 12:39 Total Protein 7.4 g/dL (6.3-8.2) 12/08/21 12:39 Albumin 4.4 g/dL (3.9-5) 12/08/21 12:39 Albumin/Globulin Ratio 1.5 % 12/08/21 12:39 Triglycerides 184 mg/dL (2-149) H 12/08/21 12:39 Cholesterol 182 mg/dL (50-199) 12/08/21 12:39 LDL Cholesterol Direct 63 mg/dL (50-130) 12/08/21 12:39 HDL Cholesterol 98 mg/dL (40-59) H 12/08/21 12:39 Cholesterol/HDL Ratio 1.85 % 12/08/21 12:39 TSH 59.450 mlU/mL (0.270-4.200) H 12/08/21 12:39 Hepatitis A IgM Ab Non-reactive (NonReactive) 12/08/21 12:39 Hep Bs Antigen Non-reactive (Negative) 12/08/21 12:39 Hep B Core IgM Ab Non-reactive (NonReactive) 12/08/21 12:39 Hepatitis C Antibody Non-reactive (NonReactive) 12/08/21 12:39 Last Vital Signs Temp 98.0 F 12/10/21 19:21 Pulse 72 12/10/21 19:21 Resp 18 12/10/21 19:21 BP 134/77 12/10/21 19:21 Pulse Ox 93 12/10/21 19:21
[2021-12-11] MEDS: TIOTROPIUM 18 MCG CAP INHALATION IH SCH (10:00)
[2021-12-11] MEDS ORDERED: BENZOCAINE/MENTHOL LOZENGE MM PRN (14:02)
[2021-12-11] MEDS ORDERED: MAGNESIUM HYDROXIDE (MOM) ORAL LIQD UDC PO PRN (20:54)
[2021-12-12] MEDS: LEVOTHYROXINE 25 MCG TAB PO SCH (06:33)
[2021-12-12] MEDS: LEVOTHYROXINE 112 MCG TAB PO SCH (06:33)
--- NOTE | 2021-12-12 08:29 | Progress Note ---
Assessment and Plan Assessment and plan: Assessment #Delusional disorder #Depression #Schizophrenia #Hypertension #Asthma #Hypothyroidism #Hyperlipidemia #Preventative health care - preventative health counseling regarding management of life stressors, medication compliance and overall effect of chronic medical conditions on overall health. Encourage patient to follow up closely with with OP providers +30 minutes. #Alcohol abuse #THC use #Cocaine use #Advance care planning Disease education conducted, care plan discussed, diagnoses discussed, prognosis discussed, patient is full code, patient acknowledges understanding and agree with care plan, +30 minutes. Plan -Psychiatric medication management per inpatient psych service -Monitor blood pressure daily, hypotensive on BP read yesterday, continue to hold lisinopril and amlodipine -Lab work reviewed. TSH significantly elevated c/w non compliance with synthr oid. -Resume home medications: Atorvastatin, Synthroid Patient currently on room air, agree with inhaler therapy with Spiriva and albuterol IM service will continue to follow while patient remains hospitalized History Interval history: No acute complaints. Hospitalist Physical - Physical exam Narrative exam: Physical Exam: VITAL SIGNS: Reviewed. GENERAL: The patient appears normally developed, Vital signs as documented. Appears older than reported age HEAD: No signs of head trauma. EYES: Pupils are equal. Extraocular motions intact. EARS: Hearing grossly intact. MOUTH: Oropharynx is normal. NECK: No adenopathy, no JVD. CHEST: Chest with clear breath sounds bilaterally. No wheezes, rales, or rhonchi. CARDIAC: Regular rate and rhythm. S1 and S2, without murmurs, gallops, or rubs. VASCULAR: No Edema. Peripheral pulses normal and equal in all extremities. ABDOMEN: Soft, non tender and non distended. No rebound or guarding, and no masses palpated. Bowel Sounds normal. MUSCULOSKELETAL: Good range of motion of all major joints. Extremities without clubbing, cyanosis or edema. NEUROLOGIC EXAM: Alert and oriented x 4. no focal sensory or strength deficits. PSYCHIATRIC: Disorganized thought process. Tangential thoughts. SKIN: detail exam as documented in skin assessment - Constitutional Vitals: Temp Pulse Resp BP Pulse Ox 98.6 F 63 17 139/72 95 12/11/21 19:26 12/11/21 19:26 12/11/21 19:26 12/11/21 19:26 12/11/21 19:26 Results - Labs CBC & Chem 7: 12/08/21 12:39 12/08/21 12:39 Labs: Laboratory Last Values WBC 5.1 K/mm3 (4.5-11.0) 12/08/21 12:39 RBC 5.15 M/mm3 (3.65-5.03) H 12/08/21 12:39 Hgb 14.9 gm/dl (10.1-14.3) H 12/08/21 12:39 Hct 46.9 % (30.3-42.9) H 12/08/21 12:39 MCV 91 fl (79-97) 12/08/21 12:39 MCH 29 pg (28-32) 12/08/21 12:39 MCHC 32 % (30-34) 12/08/21 12:39 RDW 20.8 % (13.2-15.2) H 12/08/21 12:39 Plt Count 211 K/mm3 (140-440) 12/08/21 12:39 Add Manual Diff Complete 12/08/21 12:39 Total Counted 100 12/08/21 12:39 Seg Neuts % (Manual) 70.0 % (40.0-70.0) 12/08/21 12:39 Band Neutrophils % 0 % 12/08/21 12:39 Lymphocytes % (Manual) 24.0 % (13.4-35.0) 12/08/21 12:39 Reactive Lymphs % (Man) 0 % 12/08/21 12:39 Monocytes % (Manual) 5.0 % (0.0-7.3) 12/08/21 12:39 Eosinophils % (Manual) 0 % (0.0-4.3) 12/08/21 12:39 Basophils % (Manual) 1.0 % (0.0-1.8) 12/08/21 12:39 Metamyelocytes % 0 % 12/08/21 12:39 Myelocytes % 0 % 12/08/21 12:39 Promyelocytes % 0 % 12/08/21 12:39 Blast Cells % 0 % 12/08/21 12:39 Nucleated RBC % Not Reportable 12/08/21 12:39 Seg Neutrophils # Man 3.6 K/mm3 (1.8-7.7) 12/08/21 12:39 Band Neutrophils # 0.0 K/mm3 12/08/21 12:39 Lymphocytes # (Manual) 1.2 K/mm3 (1.2-5.4) 12/08/21 12:39 Abs React Lymphs (Man) 0.0 K/mm3 12/08/21 12:39 Monocytes # (Manual) 0.3 K/mm3 (0.0-0.8) 12/08/21 12:39 Eosinophils # (Manual) 0.0 K/mm3 (0.0-0.4) 12/08/21 12:39 Basophils # (Manual) 0.1 K/mm3 (0.0-0.1) 12/08/21 12:39 Metamyelocytes # 0.0 K/mm3 12/08/21 12:39 Myelocytes # 0.0 K/mm3 12/08/21 12:39 Promyelocytes # 0.0 K/mm3 12/08/21 12:39 Blast Cells # 0.0 K/mm3 12/08/21 12:39 WBC Morphology Not Reportable 12/08/21 12:39 Hypersegmented Neuts Not Reportable 12/08/21 12:39 Hyposegmented Neuts Not Reportable 12/08/21 12:39 Hypogranular Neuts Not Reportable 12/08/21 12:39 Smudge Cells Not Reportable 12/08/21 12:39 Toxic Granulation Not Reportable 12/08/21 12:39 Toxic Vacuolation Not Reportable 12/08/21 12:39 Dohle Bodies Not Reportable 12/08/21 12:39 Pelger-Huet Anomaly Not Reportable 12/08/21 12:39 Maeve Rods Not Reportable 12/08/21 12:39 Platelet Estimate Consistent w auto 12/08/21 12:39 Clumped Platelets Not Reportable 12/08/21 12:39 Plt Clumps, EDTA Not Reportable 12/08/21 12:39 Large Platelets Not Reportable 12/08/21 12:39 Giant Platelets Not Reportable 12/08/21 12:39 Platelet Satelliting Not Reportable 12/08/21 12:39 Plt Morphology Comment Not Reportable 12/08/21 12:39 RBC Morphology Not Reportable 12/08/21 12:39 Dimorphic RBCs Not Reportable 12/08/21 12:39 Polychromasia Not Reportable 12/08/21 12:39 Hypochromasia Not Reportable 12/08/21 12:39 Poikilocytosis Not Reportable 12/08/21 12:39 Anisocytosis 1+ 12/08/21 12:39 Microcytosis Not Reportable 12/08/21 12:39 Macrocytosis Not Reportable 12/08/21 12:39 Spherocytes Not Reportable 12/08/21 12:39 Pappenheimer Bodies Not Reportable 12/08/21 12:39 Sickle Cells Not Reportable 12/08/21 12:39 Target Cells Not Reportable 12/08/21 12:39 Tear Drop Cells Not Reportable 12/08/21 12:39 Ovalocytes Not Reportable 12/08/21 12:39 Helmet Cells Not Reportable 12/08/21 12:39 [place] Bodies Not Reportable 12/08/21 12:39 [place] Rings Not Reportable 12/08/21 12:39 Yulia Cells Not Reportable 12/08/21 12:39 Bite Cells Not Reportable 12/08/21 12:39 Crenated Cell Not Reportable 12/08/21 12:39 Elliptocytes Not Reportable 12/08/21 12:39 Acanthocytes (Spur) Not Reportable 12/08/21 12:39 Rouleaux Not Reportable 12/08/21 12:39 Hemoglobin C Crystals Not Reportable 12/08/21 12:39 Schistocytes Not Reportable 12/08/21 12:39 Malaria parasites Not Reportable 12/08/21 12:39 Reinaldo Bodies Not Reportable 12/08/21 12:39 Hem Pathologist Commnt No 12/08/21 12:39 Sodium 135 mmol/L (137-145) L 12/08/21 12:39 Potassium 3.7 mmol/L (3.6-5.0) 12/08/21 12:39 Chloride 98.2 mmol/L (98-107) 12/08/21 12:39 Carbon Dioxide 27 mmol/L (22-30) 12/08/21 12:39 Anion Gap 14 mmol/L 12/08/21 12:39 BUN 16 mg/dL (7-17) 12/08/21 12:39 Creatinine 0.9 mg/dL (0.6-1.2) 12/08/21 12:39 Estimated GFR > 60 ml/min 12/08/21 12:39 BUN/Creatinine Ratio 18 % 08/22/22 12:39 Glucose 148 mg/dL (65-100) H 12/08/21 12:39 Hemoglobin A1c 6.0 % (4-6) 12/08/21 12:39 Calcium 10.9 mg/dL (8.4-10.2) H 12/08/21 12:39 Total Bilirubin 0.60 mg/dL (0.1-1.2) 12/08/21 12:39 AST 18 units/L (5-40) 12/08/21 12:39 ALT 14 units/L (7-56) 12/08/21 12:39 Alkaline Phosphatase 97 units/L (35-129) 12/08/21 12:39 Total Protein 7.4 g/dL (6.3-8.2) 12/08/21 12:39 Albumin 4.4 g/dL (3.9-5) 12/08/21 12:39 Albumin/Globulin Ratio 1.5 % 12/08/21 12:39 Triglycerides 184 mg/dL (2-149) H 12/08/21 12:39 Cholesterol 182 mg/dL (50-199) 12/08/21 12:39 LDL Cholesterol Direct 63 mg/dL (50-130) 12/08/21 12:39 HDL Cholesterol 98 mg/dL (40-59) H 12/08/21 12:39 Cholesterol/HDL Ratio 1.85 % 12/08/21 12:39 TSH 59.450 mlU/mL (0.270-4.200) H 12/08/21 12:39 Hepatitis A IgM Ab Non-reactive (NonReactive) 12/08/21 12:39 Hep Bs Antigen Non-reactive (Negative) 12/08/21 12:39 Hep B Core IgM Ab Non-reactive (NonReactive) 12/08/21 12:39 Hepatitis C Antibody Non-reactive (NonReactive) 12/08/21 12:39 Busch/IV: Voiding Method Toilet Active Medications - Current Medications Current Medications: Generic Name Dose Route Start Last Admin Trade Name Freq PRN Reason Stop Dose Admin Acetaminophen 650 mg 12/09/21 12:22 12/10/21 11:19 Acetaminophen 325 Mg Tab PO 650 mg Q6HR PRN Administration Pain, Mild (1-3) Albuterol 1 puff 12/09/21 10:00 Albuterol 8.5 Gm Mdi Inhalation IH Q4HR PRN Dyspnea Atorvastatin Calcium 20 mg 12/09/21 22:00 12/11/21 21:25 Atorvastatin 20 Mg Tab PO 20 mg HS OSBALDO Administration Benzocaine/Menthol 1 each 12/11/21 14:02 12/11/21 14:32 Benzocaine/Menthol Lozenge MM 1 each Q2HR PRN Administration Sore Throat Divalproex Sodium 125 mg 12/09/21 10:00 12/11/21 21:[address] 125 Mg Tab PO 125 mg BID OSBALDO Administration Hydroxyzine Pamoate 25 mg 12/10/21 10:00 Hydroxyzine [place] 25 Mg Cap PO Q6H PRN Anxiety Levothyroxine Sodium 112 mcg 12/10/21 06:00 12/12/21 06:33 Levothyroxine 112 Mcg Tab PO 112 mcg DAILY@0600 OSBALDO Administration Levothyroxine Sodium 25 mcg 12/10/21 06:00 12/12/21 06:33 Levothyroxine 25 Mcg Tab PO 25 mcg DAILY@0600 OSBALDO Administration Magnesium Hydroxide 30 ml 12/11/21 20:54 12/11/21 21:25 Magnesium Hydroxide (Mom) Oral Liqd Udc PO 30 ml QDAY PRN Administration Constipation Olanzapine 5 mg 12/09/21 10:00 12/11/21 21:25 Olanzapine 5 Mg Tab PO 5 mg BID OSBALDO Administration Tiotropium [place] 1 puff 12/09/21 10:00 12/11/21 10:00 Tiotropium 18 Mcg Cap Inhalation IH Not Given DAILY OSBALDO Tizanidine HCl 4 mg 12/09/21 10:00 Tizanidine Tab 4 Mg Tab PO Q8HR PRN Muscle Spasm Trazodone HCl 50 mg 12/09/21 22:00 Trazodone 50 Mg Tab PO QHS PRN Insomnia
[2021-12-12 08:38] VITALS: BP 110/68
--- NOTE | 2021-12-12 09:12 | Discharge Summary ---
Providers - Providers Date of Admission: 12/08/21 22:17 Date of discharge: 12/12/21 Attending physician: MARYLOU LANDA MD 12/08/21 19:53 Consult to Physician [CONS] Routine Comment: Consulting Provider: JUAN DANIEL SOUTH Physician Instructions: Reason For Exam: management of medical problems Primary care physician: CHUCK WAGON DRIVER Hospitalization Reason for admission: delusions Admitting Diagnosis: F20.9 - SCHIZOPHRENIA, UNSPECIFIED Condition: Stable Hospital course: The patient was provided inpatient psychiatric treatment with safe and supportive care, medication adjustment, adverse effect monitoring, medical evaluations, medical treatments, assessment and psycho-education. The patient's mood, cognition, behavior, moral support are improved and stabilized. St the time of discharge, the patient had no endangering behavior and no debilitating adverse effects. The patient agreed on potential consequences of no treatment and gave informed consent. Disposition: 01 HOME / SELF CARE / HOMELESS Time spent for discharge: 35 Allergies/Adverse Reactions: Allergies No Known Allergies Allergy (Unverified 12/08/21 18:22) Vital Signs: Last Vital Signs Temp 98.7 F 12/12/21 07:53 Pulse 63 12/12/21 07:53 Resp 16 12/12/21 07:53 BP 110/68 12/12/21 07:53 Pulse Ox 95 12/12/21 07:53 Last Lab: Laboratory Last Values WBC 5.1 K/mm3 (4.5-11.0) 12/08/21 12:39 RBC 5.15 M/mm3 (3.65-5.03) H 12/08/21 12:39 Hgb 14.9 gm/dl (10.1-14.3) H 12/08/21 12:39 Hct 46.9 % (30.3-42.9) H 12/08/21 12:39 MCV 91 fl (79-97) 12/08/21 12:39 MCH 29 pg (28-32) 12/08/21 12:39 MCHC 32 % (30-34) 12/08/21 12:39 RDW 20.8 % (13.2-15.2) H 12/08/21 12:39 Plt Count 211 K/mm3 (140-440) 12/08/21 12:39 Add Manual Diff Complete 12/08/21 12:39 Total Counted 100 12/08/21 12:39 Seg Neuts % (Manual) 70.0 % (40.0-70.0) 12/08/21 12:39 Band Neutrophils % 0 % 12/08/21 12:39 Lymphocytes % (Manual) 24.0 % (13.4-35.0) 12/08/21 12:39 Reactive Lymphs % (Man) 0 % 12/08/21 12:39 Monocytes % (Manual) 5.0 % (0.0-7.3) 12/08/21 12:39 Eosinophils % (Manual) 0 % (0.0-4.3) 12/08/21 12:39 Basophils % (Manual) 1.0 % (0.0-1.8) 12/08/21 12:39 Metamyelocytes % 0 % 12/08/21 12:39 Myelocytes % 0 % 12/08/21 12:39 Promyelocytes % 0 % 12/08/21 12:39 Blast Cells % 0 % 12/08/21 12:39 Nucleated RBC % Not Reportable 12/08/21 12:39 Seg Neutrophils # Man 3.6 K/mm3 (1.8-7.7) 12/08/21 12:39 Band Neutrophils # 0.0 K/mm3 12/08/21 12:39 Lymphocytes # (Manual) 1.2 K/mm3 (1.2-5.4) 12/08/21 12:39 Abs React Lymphs (Man) 0.0 K/mm3 12/08/21 12:39 Monocytes # (Manual) 0.3 K/mm3 (0.0-0.8) 12/08/21 12:39 Eosinophils # (Manual) 0.0 K/mm3 (0.0-0.4) 12/08/21 12:39 Basophils # (Manual) 0.1 K/mm3 (0.0-0.1) 12/08/21 12:39 Metamyelocytes # 0.0 K/mm3 12/08/21 12:39 Myelocytes # 0.0 K/mm3 12/08/21 12:39 Promyelocytes # 0.0 K/mm3 12/08/21 12:39 Blast Cells # 0.0 K/mm3 12/08/21 12:39 WBC Morphology Not Reportable 12/08/21 12:39 Hypersegmented Neuts Not Reportable 12/08/21 12:39 Hyposegmented Neuts Not Reportable 12/08/21 12:39 Hypogranular Neuts Not Reportable 12/08/21 12:39 Smudge Cells Not Reportable 12/08/21 12:39 Toxic Granulation Not Reportable 12/08/21 12:39 Toxic Vacuolation Not Reportable 12/08/21 12:39 Dohle Bodies Not Reportable 12/08/21 12:39 Pelger-Huet Anomaly Not Reportable 12/08/21 12:39 Maeve Rods Not Reportable 12/08/21 12:39 Platelet Estimate Consistent w auto 12/08/21 12:39 Clumped Platelets Not Reportable 12/08/21 12:39 Plt Clumps, EDTA Not Reportable 12/08/21 12:39 Large Platelets Not Reportable 12/08/21 12:39 Giant Platelets Not Reportable 12/08/21 12:39 Platelet Satelliting Not Reportable 12/08/21 12:39 Plt Morphology Comment Not Reportable 12/08/21 12:39 RBC Morphology Not Reportable 12/08/21 12:39 Dimorphic RBCs Not Reportable 12/08/21 12:39 Polychromasia Not Reportable 12/08/21 12:39 Hypochromasia Not Reportable 12/08/21 12:39 Poikilocytosis Not Reportable 12/08/21 12:39 Anisocytosis 1+ 12/08/21 12:39 Microcytosis Not Reportable 12/08/21 12:39 Macrocytosis Not Reportable 12/08/21 12:39 Spherocytes Not Reportable 12/08/21 12:39 Pappenheimer Bodies Not Reportable 12/08/21 12:39 Sickle Cells Not Reportable 12/08/21 12:39 Target Cells Not Reportable 12/08/21 12:39 Tear Drop Cells Not Reportable 12/08/21 12:39 Ovalocytes Not Reportable 12/08/21 12:39 Helmet Cells Not Reportable 12/08/21 12:39 [place] Bodies Not Reportable 12/08/21 12:39 [place] Rings Not Reportable 12/08/21 12:39 Yulia Cells Not Reportable 12/08/21 12:39 Bite Cells Not Reportable 12/08/21 12:39 Crenated Cell Not Reportable 12/08/21 12:39 Elliptocytes Not Reportable 12/08/21 12:39 Acanthocytes (Spur) Not Reportable 12/08/21 12:39 Rouleaux Not Reportable 12/08/21 12:39 Hemoglobin C Crystals Not Reportable 12/08/21 12:39 Schistocytes Not Reportable 12/08/21 12:39 Malaria parasites Not Reportable 12/08/21 12:39 Reinaldo Bodies Not Reportable 12/08/21 12:39 Hem Pathologist Commnt No 12/08/21 12:39 Sodium 135 mmol/L (137-145) L 12/08/21 12:39 Potassium 3.7 mmol/L (3.6-5.0) 12/08/21 12:39 Chloride 98.2 mmol/L (98-107) 12/08/21 12:39 Carbon Dioxide 27 mmol/L (22-30) 12/08/21 12:39 Anion Gap 14 mmol/L 12/08/21 12:39 BUN 16 mg/dL (7-17) 12/08/21 12:39 Creatinine 0.9 mg/dL (0.6-1.2) 12/08/21 12:39 Estimated GFR > 60 ml/min 12/08/21 12:39 BUN/Creatinine Ratio 18 % 12/08/21 12:39 Glucose 148 mg/dL (65-100) H 12/08/21 12:39 Hemoglobin A1c 6.0 % (4-6) 12/08/21 12:39 Calcium 10.9 mg/dL (8.4-10.2) H 12/08/21 12:39 Total Bilirubin 0.60 mg/dL (0.1-1.2) 12/08/21 12:39 AST 18 units/L (5-40) 12/08/21 12:39 ALT 14 units/L (7-56) 12/08/21 12:39 Alkaline Phosphatase 97 units/L (35-129) 12/08/21 12:39 Total Protein 7.4 g/dL (6.3-8.2) 12/08/21 12:39 Albumin 4.4 g/dL (3.9-5) 12/08/21 12:39 Albumin/Globulin Ratio 1.5 % 12/08/21 12:39 Triglycerides 184 mg/dL (2-149) H 12/08/21 12:39 Cholesterol 182 mg/dL (50-199) 12/08/21 12:39 LDL Cholesterol Direct 63 mg/dL (50-130) 12/08/21 12:39 HDL Cholesterol 98 mg/dL (40-59) H 12/08/21 12:39 Cholesterol/HDL Ratio 1.85 % 12/08/21 12:39 TSH 59.450 mlU/mL (0.270-4.200) H 12/08/21 12:39 Hepatitis A IgM Ab Non-reactive (NonReactive) 12/08/21 12:39 Hep Bs Antigen Non-reactive (Negative) 12/08/21 12:39 Hep B Core IgM Ab Non-reactive (NonReactive) 12/08/21 12:39 Hepatitis C Antibody Non-reactive (NonReactive) 12/08/21 12:39 Core Measure Documentation - Palliative Care Palliative Care/ Comfort Measures: Not Applicable - Core Measures Any of the following diagnoses?: none Exam - Constitutional Vitals: Temp Pulse Resp BP Pulse Ox 98.7 F 63 16 110/68 95 12/12/21 07:53 12/12/21 07:53 12/12/21 07:53 12/12/21 07:53 12/12/21 07:53 General appearance: Present: no acute distress - EENT Eyes: Present: PERRL, EOM intact ENT: hearing intact, clear oral mucosa - Neck Neck: Present: supple, normal ROM - Respiratory Respiratory effort: normal Plan Activity: advance as tolerated Weight Bearing Status: Weight Bear as Tolerated Care Plan Goals: Maintain stable and mental health Plan of Treatment: The patient should be compliant with medications, not to use drugs, and not to drink alcohol. The patient understands that if suicidal ideas, homicidal ideas or any endangering feeling arise, the patient should seek assistance including, but not limited to crisis hotline, and emergency room. Assessment: Schizophrenia Follow up with: PRIMARY CARE, [Primary Care Provider] - 7 Days Prescriptions: traZODone [Desyrel] 50 mg PO QHS PRN #30 tablet PRN Reason: Insomnia Divalproex Dr [Depakote Dr] 125 mg PO BID #60 tablet hydrOXYzine PAMOATE [Vistaril] 25 mg PO Q6H PRN #120 capsule PRN Reason: Anxiety OLANzapine [ZyPREXA] 5 mg PO BID #60 tablet
[2021-12-12] MEDS: DIVALPROEX DR 125 MG TAB PO SCH (10:15)
[2021-12-12] MEDS: TIOTROPIUM 18 MCG CAP INHALATION IH SCH (10:32)
== END 2021-12-12 11:30 | disposition home or self-care (01) | DRG 885 ==
LOC: UNDOADMIN 14:48 → 3A 14:48 → 5A 22:17
PROVIDERS: ADMIT Psychiatry & Neurology Psychiatry; ATTEND Psychiatry & Neurology Psychiatry
DX: F20.9 Schizophrenia, unspecified (principal); F32.A Depression, unspecified; R45.851 Suicidal ideations; E78.5 Hyperlipidemia, unspecified; I10 Essential (primary) hypertension; J45.909 Unspecified asthma, uncomplicated; E03.9 Hypothyroidism, unspecified; F22 Delusional disorders; F10.10 Alcohol abuse, uncomplicated; Y90.9 Presence of alcohol in blood, level not specified; F14.90 Cocaine use, unspecified, uncomplicated; Z79.899 Other long term (current) drug therapy; F12.90 Cannabis use, unspecified, uncomplicated
CPT/HCPCS: 36415; 80053; 80061; 80074; 83036; 84443; 85007; 85025; 94640; G0378